=== PATIENT | female | born 1940 | race Caucasian/White ===

== ENCOUNTER 2016-09-17 22:29 | Observation (INO) | payer OTHER ==
--- NOTE | ~2016-09-17 | DS ---
Discharge Summary [facility] [address] [place]. [address] NAME: SHERRY CANTU : 44 STATUS : DIS IN PAT#: [id number] AGE: 75 ADM/REG DATE : 09/17/16 MR#: [id number] REPORT SERV DATE: 09/18/16 DICTATED BY: KAIA LONDON DATE: 09/18/16 REPORT STATUS : Draft TRANSCRIBED BY: MODL DATE: 09/18/16 ADMISSION DATE: 09/17/2016 DISCHARGE DATE: 09/18/2016 CHIEF COMPLAINT: Hyperglycemia due to steroids from chemotherapy. HISTORY OF PRESENT ILLNESS: Please see full H and P by Dr. Subhash Cook regarding initial presentation. HOSPITAL COURSE: 1. Hyperglycemia due to steroids with chemotherapy. The patient was admitted and given a dose of Levemir and had improvement in blood sugars. Currently, insulin pump going. Discussed with the patient's family. They had not been increasing her basal with her chemotherapy and had been having issues, but never this high. The patient currently has improved symptoms including less thirst and less fatigue. She has been up walking, eager to go home, as she currently has her Neulasta off and starting to have some bony pain for which she manages at home with heat. The patient has an outpatient diabetes doctor, recommended following with them, and having a strategy for blood sugars before her next chemotherapy. Hemoglobin A1c is 8.5, and she may benefit from additional help with her managing her insulin pump as she is going through her cancer. 2. Leukocytosis due to Neulasta which was removed yesterday. 3. CKD. The patient is grossly at baseline stage 3 CKD. Follow up with outpatient providers. 4. Metabolic acidosis. This is improving. We will give her a dose of p.o. bicarb prior to discharge. She will have blood work with Dr. Mathis in the office later this week. She does not have an anion gap. 5. Hypertension and history of coronary artery disease as well as chronic systolic heart failure with ejection fraction 45%. The patient will continue her previous home regimen for her chronic medical condition. DISPOSITION: Home. TIME SPENT ON DISCHARGE: Less than 30 minutes. The patient will be changed to observation, per condition code 44. DNK/MODL Kaia London MD / [id number] CC: Micah Copeland M.D. Discharge Summary [address] [address] NAME: SHERRY CANTU : 44 STATUS : DIS IN PAT#: [id number] AGE: 75 ADM/REG DATE : 09/17/16 MR#: [id number] REPORT SERV DATE: 09/18/16 DICTATED BY: KAIA LONDON DATE: 09/18/16 REPORT STATUS : Draft TRANSCRIBED BY: MODL DATE: 09/18/16 Pili Maradiaga
--- NOTE | ~2016-09-17 | HP ---
History And Physical [place] [address] [facility] [place]. [address] NAME: SHERRY CANTU : 44 STATUS : ADM IN PAT#: [id number] AGE: 75 ADM/REG DATE : 09/17/16 MR#: [id number] REPORT SERV DATE: 09/18/16 DICTATED BY: JENIFFER HANEY DATE: 09/18/16 REPORT STATUS : Draft TRANSCRIBED BY: MODL DATE: 09/18/16 DATE OF ADMISSION: 09/17/2016 CHIEF COMPLAINT: A 75-year-old female recently undergoing treatments for breast cancer with an adverse reaction to steroids including very poorly controlled hyperglycemia. HISTORY OF PRESENTING ILLNESS: The patient's history was obtained through careful interview with the patient and her , coupled with review of [facility] medical records. The patient has been undergoing chemotherapy under the care of Dr. Vadim Mathis for breast cancer. She just completed chemotherapy on the day prior to admission and had steroids on the day before, during, and now this day after her chemotherapy. She was also given a shot of "Neulasta." She states that this morning, her blood sugars were in usual good control, but then as the day went on, she noticed that she had poor control of her blood sugars and finally, her blood sugars registered as greater than 600. She tried to take 50 units of subcutaneous insulin, but still, the blood sugar did not come down adequately. She describes no polyuria. No polydipsia. No fevers or chills. No shortness of breath. No cough. No chest pain. She has developed significant arthritis, which is typical after chemotherapy doses. She states it affects almost every joint in her body, an aching quality, 8/10 severity. No diarrhea. No nausea or vomiting. REVIEW OF SYSTEMS: Otherwise, complete review of systems was obtained and was negative. PAST MEDICAL HISTORY: 1. Breast cancer with one positive lymph node diagnosed, 05/2016, status post surgery, radiation, and chemotherapy, followed by Dr. Vadim Mathis. 2. Diabetes with chronic neuropathy, on insulin pump, followed by Dr. Sheri Varner. 3. Systolic congestive heart failure with ejection fraction 45%. 4. Coronary artery disease. 5. Hypertension. 6. Hypothyroidism. 7. Nephrolithiasis. 8. Recurrent pneumonia in 2008, 2013, and 2015. 9. Gout. 10.Chronic kidney disease stage 3, baseline creatinine of 1.4 to 1.7. 11.Elevated cholesterol. 12.Epidural injections. 13.Cellulitis of the lower extremities. 14.Proteinuria. History And Physical [address] [address] NAME: SHERRY CANTU : 44 STATUS : ADM IN PAT#: [id number] AGE: 75 ADM/REG DATE : 09/17/16 MR#: [id number] REPORT SERV DATE: 09/18/16 DICTATED BY: JENIFFER HANEY DATE: 09/18/16 REPORT STATUS : Draft TRANSCRIBED BY: JUDY DATE: 09/18/16 15.Peptic ulcer disease just in 07/2016, seen by Dr. Jeronimo Paez. PAST SURGICAL HISTORY: 1. Cervical spine surgery. 2. Lumbar spine surgery. 3. Cholecystectomy. 4. Hysterectomy. 5. Breast lumpectomy for cancer. 6. Left shoulder surgery. ALLERGIES: ROCEPHIN. SOCIAL HISTORY: She has never been a smoker. Does not drink alcohol. She has been to her for 58 years. He is of [place] ancestry. They live in [place], [place]. She has four children, all of whom live locally, eight grandchildren, and six great- grandchildren. FAMILY HISTORY: Diabetes and heart disease. CURRENT MEDICATIONS: Include albuterol inhaler; allopurinol 100 mg p.o. daily; Norvasc 10 mg p.o. daily; Lipitor 10 mg p.o. daily; Coreg 12.5 mg p.o. daily; vitamin D; Decadron 4 mg on the day before, the day of, and the day after chemotherapy; Tylenol PM; Neurontin 300 mg p.o. daily; hydrochlorothiazide 25 mg p.o. daily; insulin pump; levothyroxine 88 mcg p.o. daily; Imodium p.r.n.; Claritin p.r.n.; Ativan p.r.n.; Cozaar 100 mg p.o. daily; multivitamin; Protonix 40 mg p.o. daily; Neulasta; and chemotherapy. PHYSICAL EXAMINATION: VITAL SIGNS: Temperature 97.4, pulse 76, blood pressure 193/79, respiratory rate 20, O2 saturation 98% on room air. GENERAL: Pleasant and cooperative female, in no evidence of acute distress at this time. HEENT: Pupils equal, round, and reactive to light. No conjunctival pallor. No scleral icterus. Nares are patent. Oropharynx is clear of obstruction. Moist mucous membranes. NECK: Trachea midline. No thyromegaly. LYMPH: No cervical lymphadenopathy. No supraclavicular lymphadenopathy. RESPIRATORY: Clear to auscultation at bases. No wheezes, no rales, no rhonchi. The patient has a normal respiratory effort. CARDIOVASCULAR: Regular rate and rhythm. No murmurs, rubs, or gallops. Chronic-appearing lower extremity edema, nonpitting. ABDOMEN: Soft, nontender, nondistended. Normal bowel sounds auscultated throughout. No organomegaly. DERMATOLOGICAL: Warm and dry extremities. No pallor, no cyanosis. Slight tenting of the skin to suggest dehydration. PSYCHIATRIC: Normal affect. Good mood. Alert and oriented x3. LABORATORY DATA: Alkaline phosphatase 154, white blood cell count 40.7, platelets 295, hemoglobin 9.9, hematocrit 28.2. Sodium 135, potassium 4.3, chloride 101, bicarb 18, BUN History And Physical [address] [place]. [address] NAME: SHERRY CANTU : 44 STATUS : ADM IN [facility]#: [id number] AGE: 75 ADM/REG DATE : 09/17/16 MR#: [id number] REPORT SERV DATE: 09/18/16 DICTATED BY: JENIFFER HANEY DATE: 09/18/16 REPORT STATUS : Draft TRANSCRIBED BY: MODL DATE: 09/18/16 57, creatinine 1.93, glucose 531. ABG demonstrates a pH of 7.38 and a bicarb of 18. STUDIES: Chest x-ray by my own evaluation shows no acute cardiopulmonary process. ASSESSMENT AND PLAN: 1. Severe hyperglycemia. Check hemoglobin A1c. Likely exacerbated by steroids. The patient has borderline acidosis, but no overt diabetic ketoacidosis at this time. We will continue insulin pump. Give an extra dose of basal Levemir. Place on q.4-hour Accu-Cheks with aggressive sliding scale insulin and place on IV fluids. 2. Leukocytosis. I believe this is likely from the Neulasta and steroids. We will check blood cultures. Monitor closely for potential fevers. Negative chest x-ray. Negative urinalysis. 3. Breast cancer, on chemotherapy and radiation, followed by Dr. Vadim Mathis. 4. Acute kidney injury on chronic kidney disease stage 3. Place on IV fluids and monitor. KPL/MODL Jeniffer Haney M.D. / [id number] CC: Maria Barker M.D.
[2016-09-17 21:56] LABS: BASOPHILS 0 %; BASOPHILS ABSOLUTE 0.01 10/3/uL (0.0-0.16); EOSINOPHILS 0 %; HEMATOCRIT 28.2 % (36.0-48.0); HEMOGLOBIN 9.9 g/dL (12.0-16.0); IMMATURE GRANULOCYTES 0.9 %; IMMATURE GRANULOCYTES ABSOLUTE 0.35 10/3/uL (0.0-0.11); LYMPHOCYTES 3.1 %; LYMPHOCYTES ABSOLUTE 1.28 10/3/uL (0.67-4.30); MEAN CORPUS HGB CONC 35.1 g/dL (32.0-36.0); MEAN CORPUSCULAR HEMOGLOB 31.1 pg (26.0-34.0); MEAN CORPUSCULAR VOLUME 88.7 fL (80-100); MEAN PLATELET VOLUME 9.9 fL (9.2-13.0); MONOCYTES 1.5 %; MONOCYTES ABSOLUTE 0.61 10/3/uL (0.21-1.20); NEUTROPHILS 94.5 %; NEUTROPHILS ABSOLUTE 38.41 10/3/uL (2.02-8.40); PLATELET COUNT 295 10/3/uL (150-400); RBC DISTRIBUTION WIDTH 15.6 % (12.0-16.0); RED CELL COUNT 3.18 10/6/uL (4.0-5.6)
[2016-09-17 21:58] LABS: ER CBC TAT 0 Hrs 07 Mins; WHITE BLOOD CELLS 40.7 10/3/uL (4.5-10.5)
[2016-09-17 21:59] LABS: MANUAL DIFF NO %
[2016-09-17 22:12] LABS: CHLORIDE, SERUM 101 MMOL/L (96-112); CREATININE 1.93 MG/DL (0.55-1.02); GFR AFRICAN AMERICAN 29 ML/MIN (>=60); GFR NON AFRICAN AMERICAN 25 ML/MIN (>=60); POTASSIUM, SERUM 4.3 MMOL/L (3.5-5.3); SGOT(AST) 22 U/L (5-40); SGPT(ALT) 28 U/L (5-65); TOTAL BILIRUBIN 0.2 MG/DL (0-1.2); TOTAL PROTEIN 6.9 G/DL (6.0-8.5)
[2016-09-17 22:13] LABS: ALBUMIN 3.5 G/DL (3.5-5.0); ALKALINE PHOSPHATASE 154 U/L (45-117); BAND NEUTROPHILS 1 %; BUN (BLOOD UREA NITROGEN) 57 MG/DL (6-23); CO2 (CARBON DIOXIDE) 18 MMOL/L (24-34); ER DIFF TAT 0 Hrs 22 Mins; GLOBULIN 3.4 G/DL (2.5-4.1); GLUCOSE, SERUM 531 MG/DL (60-99); LYMPHOCYTES 1 %; LYMPHOCYTES ABSOLUTE (CALC) 0.41 10/3/uL (0.67-4.30); MONOCYTES 1 %; MONOCYTES ABSOLUTE (CALC) 0.41 10/3/uL (0.21-1.20); NEUTROPHILS ABSOLUTE (CALC) 39.89 10/3/uL (2.02-8.40); SEGMENTED NEUTROPHIL (0) 97 %; SODIUM, SERUM 135 MMOL/L (135-148); TOTAL NUCLEATED CELLS 100; TOXIC GRANULATION 1+
[2016-09-17 22:14] LABS: PLATELET ESTIMATE ADQ (ADEQUATE); RBC MORPHOLOGY NORM (NORMAL)
[~2016-09-17 22:29] MED LIST: ADVIL PO; AT25 PO; B12250T PO; BACDS PO; CAPOZIDE PO; CINNAMONPO PO; COREG12 PO; COREG6 PO; CORICIDI2 PO; COZ50 PO; COZAAR100 MG PO; D.O.S.100 MG PO; HALF81 PO; HUMAPUMP SC; HUMOLOG; K500 PO; L-THYROXIN; LANTUS; LEVAQUIN750 MG PO; LEVEMFLXPN SC; LEVOTHYROXIN75 MCG PO; LIPITOR10 PO; LIPITOR20 PO; LISINOPRIL40 MG PO; LOFIBRA134 MG PO; MAGOX4 PO; METHOC500B PO; MICARDIS H80 MG/25 M PO; MIRALAXPKT PO; NEUR300 PO; NEUR600 PO; NORCO1 TAB PO; NORV10 PO; NORV5 PO; OS500+D PO; OTC PROBIOTIC PO; OXYCOD PO; PCET PO; PRAVAC PO; PREM45 PO; PRIN10 PO; PRIN2.5 PO; SYN075 PO; SYN88 PO; TEKTUR150 PO; TRICOR145 PO; TYLENOL PM PO; VENTOLIN HFA INH; VICODINTAB PO; VITAMIN D1000 UNI1 PO; VITD PO; WELLSR150 PO; X5 PO; Z100 PO; Z300 PO; ZESTRIL5 MG PO; ZYRTEC ALLGY10 MG PO; ZYVOXPO PO
[2016-09-17 22:42] LABS: WBC (NOT ORDERED) (RFLEX) 0 (0-5)
[2016-09-17 22:49] LABS: ASCORBIC ACID (UR NOT ORDER) NEG (NEG); BILIRUBIN, URINE NEGATIVE (NEG); ER URINALYSIS TAT 0 Hrs 07 Mins; KETONE, URINE NEGATIVE (NEG); LEUKOCYTE ESTERASE(NOT OR NEG (NEG); NITRITE (URINE) NEG (NEG)
[2016-09-17] MEDS ORDERED: PROTONIX PO (23:21)
[2016-09-17] MEDS ORDERED: Z100 PO (23:21)
[2016-09-17] MEDS ORDERED: ATV.5 PO (23:22)
[2016-09-17] MEDS ORDERED: NEUR300 PO (23:22)
[2016-09-17] MEDS ORDERED: HYDROCHLOROT25 MG PO (23:22)
[2016-09-17] MEDS ORDERED: LIPITOR10 PO (23:22)
[2016-09-17] MEDS ORDERED: COREG12 PO (23:22)
[2016-09-17] MEDS ORDERED: LEVOTHYROXIN88 MCG PO (23:23)
[2016-09-17] MEDS ORDERED: MAXIMUM D3 PO (23:23)
[2016-09-17] MEDS ORDERED: COZAAR100 MG PO (23:23)
[2016-09-17] MEDS ORDERED: TYLENOL PM PO (23:23)
[2016-09-17] MEDS ORDERED: NORV10 PO (23:23)
[2016-09-17] MEDS ORDERED: DEX4 PO (23:24)
[2016-09-17] MEDS ORDERED: CHEMOTHERAPY IV (23:24)
[2016-09-17] MEDS ORDERED: IMOD PO (23:25)
[2016-09-17] MEDS ORDERED: NEULASTA SC (23:25)
[2016-09-17] MEDS ORDERED: HUMAPUMP SC (23:26)
[2016-09-17] MEDS ORDERED: CLARIT10 PO (23:26)
[2016-09-17] MEDS ORDERED: PROAIR HFA PO (23:27)
[2016-09-17] MEDS ORDERED: CENTRUM PO (23:27)
[2016-09-18 00:19] LABS: BE (BASE EXCESS) -5.4 MEQ/L (0 +/- 2.5); CARBOXYHEMOGLOBIN 0.7 % (0-3); HCO3 (ACTUAL BICARBONATE) 18.8 MEQ/L (23-27); HEMOBLOGIN CONTENT 10.2 G/DL (12-16); INSTRUMENT SERIAL # 8087; METHEMOGLOBIN 0.4 % (0-3); O2 CONTENT 13.8 VOL% (18-24); PCO2 (CO2 TENSION) 32 MMHG (35-45); PO2 (O2 TENSION) 89 MMHG (79-93); SAMPLE Arterial; pH 7.39 (7.37-7.43)
[2016-09-18 00:20] LABS: ALLENS TEST Pos; OPERATOR ID 17589
[2016-09-18 05:43] LABS: HEMATOCRIT 28.6 % (36.0-48.0); MEAN CORPUSCULAR HEMOGLOB 31.3 pg (26.0-34.0); MEAN CORPUSCULAR VOLUME 89.4 fL (80-100); MEAN PLATELET VOLUME 9.7 fL (9.2-13.0); PLATELET COUNT 259 10/3/uL (150-400); RBC DISTRIBUTION WIDTH 15.7 % (12.0-16.0)
[2016-09-18 05:44] LABS: MANUAL DIFF YES %
[2016-09-18 06:01] LABS: ALBUMIN 3.4 G/DL (3.5-5.0); BUN (BLOOD UREA NITROGEN) 54 MG/DL (6-23); CALCIUM, SERUM 8.3 MG/DL (8.5-10.4); CHLORIDE, SERUM 109 MMOL/L (96-112); CO2 (CARBON DIOXIDE) 21 MMOL/L (24-34); CREATININE 1.49 MG/DL (0.55-1.02); GFR AFRICAN AMERICAN 40 ML/MIN (>=60); GFR NON AFRICAN AMERICAN 34 ML/MIN (>=60); GLOBULIN 3.5 G/DL (2.5-4.1); POTASSIUM, SERUM 4.1 MMOL/L (3.5-5.3); SGOT(AST) 20 U/L (5-40); SGPT(ALT) 26 U/L (5-65); TOTAL BILIRUBIN 0.5 MG/DL (0-1.2); TOTAL PROTEIN 6.9 G/DL (6.0-8.5)
[2016-09-18 06:03] LABS: ALKALINE PHOSPHATASE 114 U/L (45-117); GLUCOSE, SERUM 115 MG/DL (60-99); SODIUM, SERUM 142 MMOL/L (135-148)
[2016-09-18 06:09] LABS: INTERNATIONAL NORMAL RATI 1.1 UNITS (-); PROTIME (NOT ORD) 14.4 SEC (12.0-14.5)
[2016-09-18 06:10] LABS: PARTIAL THROMBO TIME 23.4 SEC (22.5-37.2)
[2016-09-18 07:33] LABS: BAND NEUTROPHILS 9 %; IMMATURE GRANS ABSOLUTE (CALC) 0.47 10/3/uL (0.0-0.11); LYMPHOCYTES 1 %; LYMPHOCYTES ABSOLUTE (CALC) 0.47 10/3/uL (0.67-4.30); METAMYELOCYTES 1 %; NEUTROPHILS ABSOLUTE (CALC) 46.06 10/3/uL (2.02-8.40); PLATELET ESTIMATE ADQ (ADEQUATE); RBC MORPHOLOGY NORM (NORMAL); SEGMENTED NEUTROPHIL (0) 89 %; TOTAL NUCLEATED CELLS 100; TOXIC GRANULATION 1+
[2016-09-18 07:34] LABS: PATH REVIEW YES
== END 2016-09-18 15:45 | disposition home or self-care (01) ==
LOC: ER 22:29 → 7NO 23:49
PROVIDERS: Emergency Medicine; Hospitalist; Internal Medicine
DX: E11.65 Type 2 diabetes mellitus with hyperglycemia (principal); T38.7X5A Adverse effect of androgens and anabolic congeners, initial encounter; D72.829 Elevated white blood cell count, unspecified; E11.22 Type 2 diabetes mellitus with diabetic chronic kidney disease; E11.40 Type 2 diabetes mellitus with diabetic neuropathy, unspecified; N17.9 Acute kidney failure, unspecified; I13.0 Hypertensive heart and chronic kidney disease with heart failure and stage 1 through stage 4 chronic kidney disease, or unspecified chronic kidney disease; I50.22 Chronic systolic (congestive) heart failure; N18.3 Chronic kidney disease, stage 3 (moderate); E03.9 Hypothyroidism, unspecified; J18.9 Pneumonia, unspecified organism; M10.9 Gout, unspecified; E78.00 Pure hypercholesterolemia, unspecified; E87.2 Acidosis; K44.9 Diaphragmatic hernia without obstruction or gangrene; D63.1 Anemia in chronic kidney disease; D64.9 Anemia, unspecified; Z87.442 Personal history of urinary calculi; Z98.890 Other specified postprocedural states; Z88.8 Allergy status to other drugs, medicaments and biological substances; Z79.4 Long term (current) use of insulin; Z79.899 Other long term (current) drug therapy; Z96.652 Presence of left artificial knee joint; Z90.711 Acquired absence of uterus with remaining cervical stump
CPT/HCPCS: 36600; 71010; 80053; 81001; 82805; 82962; 83036; 83605; 83735; 84145; 84443; 85025; 85610; 85730; 87040; 96372; 96374; 99285; A9270-GY; G0378